=== PATIENT | male | born 1985 | race Caucasian/White ===

== ENCOUNTER 2024-08-24 16:48 | Inpatient (IN) | payer SELFPAY ==
[~2024-08-24] VITALS: Ht 165.1 cm; Wt 54.4 kg
[2024-08-24 18:16] LABS: BASOPHILS % 0.3 % (0.0-2.0); EOSINOPHILS % 0.1 % (0.0-5.0); HEMATOCRIT. 42.4 % (42.0-52.0); HEMOGLOBIN. 14.5 g/dL (14.0-18.0); LYMPHOCYTES % 7.5 % (20.0-50.0); MEAN CORPUSCULAR HEMOGLOBIN 28.4 pg (28.0-32.0); MEAN CORPUSCULAR HGB CONC 34.1 g/dL (31.0-37.0); MEAN CORPUSCULAR VOLUME 83.2 fL (80.0-94.0); MEAN PLATELET VOLUME 8.1 fl (7.4-10.4); MONOCYTES % 4.6 % (2.0-8.0); NEUTROPHILS % 87.5 % (40.0-76.0); PLATELET 226 x1000/uL (130-400); RED CELL DISTRIBUTION WIDTH 13.4 % (11.6-14.6); WHITE BLOOD COUNT 9.8 x1000/uL (4.5-11.0)
[2024-08-24 18:25] LABS: CHLORIDE 103 mEq/L (98-107); POTASSIUM 3.6 mEq/L (3.5-5.1); SODIUM 137 mEq/L (136-145)
[2024-08-24 18:26] LABS: CALCIUM 9.7 mg/dL (8.7-10.4); CARBON DIOXIDE 28 mEq/L (21-32)
[2024-08-24] MEDS: SODIUM CHLORIDE 0.9% 1,000 ML IV ONE (18:27)
[2024-08-24 18:31] LABS: CREATININE 0.9 mg/dL (0.6-1.3); ETHANOL BLOOD < 10 mg/dL (<10); GLUCOSE 146 mg/dL (70-105); UREA NITROGEN BLOOD 10 mg/dL (9-23)
[2024-08-24] MEDS: ONDANSETRON HCL 4MG/2ML INJ IV ONE (18:40)
[2024-08-24] MEDS: MECLIZINE 25MG TABLET PO ONE (18:40)
[2024-08-24 18:42] LABS: TROPONIN I HIGH SENSITIVITY 56 ng/L (3.0-53)
[2024-08-24 18:43] LABS: INR 1.1; PROTHROMBIN TIME 11.7 sec (9.6-11.0)
[2024-08-24 20:31] LABS: CLARITY URINE CLEAR (CLEAR); COLOR URINE YELLOW (YELLOW); GLUCOSE URINE NEGATIVE (NEGATIVE); KETONES URINE NEGATIVE (NEGATIVE); LEUKOCYTE ESTERASE URINE NEGATIVE (NEGATIVE); NITRITE URINE NEGATIVE (NEGATIVE); OCCULT BLOOD URINE NEGATIVE (NEGATIVE); PH URINE 6.5 (4.5-8.0); PROTEIN URINE NEGATIVE (NEGATIVE); SPECIFIC GRAVITY URINE 1.025 (1.005-1.030); UROBILINOGEN URINE 0.2 E.U./dL (0.2-1.0)
[2024-08-24 20:47] LABS: *AMPHETAMINES SCREEN URINE NEGATIVE (NEGATIVE); *BARBITURATES SCREEN URINE NEGATIVE (NEGATIVE); *BENZODIAZEPINES SCREEN URINE NEGATIVE (NEGATIVE); *COCAINE SCREEN URINE NEGATIVE (NEGATIVE); METHADONE URINE SCREEN NEGATIVE (NEGATIVE); OPIATES URINE SCREEN NEGATIVE (NEGATIVE)
[2024-08-24 20:48] LABS: CANNABINOID URINE SCREEN PRESUMPTIVE POSITIVE (NEGATIVE); ECSTASY MDMA SCREEN URINE NEGATIVE (NEGATIVE); PHENCYCLIDINE URINE SCREEN NEGATIVE (NEGATIVE)
[2024-08-24] MEDS ORDERED: ACETAMINOPHEN 325MG TABLET PO PRN ×2 (21:45)
[2024-08-24] MEDS ORDERED: DOCUSATE SODIUM 100MG CAPSULE PO PRN (21:45)
[2024-08-24] MEDS ORDERED: IPRATROPIUM/ALBUTEROL 0.5-3(2.5)MG/3ML NEB HHN PRN (21:45)
[2024-08-24] MEDS ORDERED: ONDANSETRON HCL 4MG/2ML INJ IV PRN (21:45)
[2024-08-24] MEDS ORDERED: CLONIDINE 0.1MG TABLET PO PRN (21:45)
[2024-08-24] MEDS ORDERED: MECLIZINE 12.5MG TABLET PO PRN (21:45)
[2024-08-24 21:51] LABS: TROPONIN I HIGH SENSITIVITY 86 ng/L (3.0-53)
[2024-08-24] MEDS: ASPIRIN 81MG TABLET PO SCH (23:01)
[2024-08-24 23:20] VITALS: BP 122/78; PULSE 62; RESP 18; TEMP 36.4
[2024-08-25] VITALS: BP 107/68; PULSE 52; RESP 18; TEMP 36.4; O2SAT 100
[2024-08-25] MEDS ORDERED: IOHEXOL-350 100 ML BOTTLE ONE (00:47)
[2024-08-25 04:00] VITALS: BP 98/64; PULSE 56; RESP 17; TEMP 36.3; O2SAT 100
[2024-08-25 07:33] LABS: THYROID STIMULATING HORMONE 0.68 uIU/mL (0.55-4.78)
[2024-08-25 08:00] VITALS: BP 114/68; PULSE 62; RESP 18; TEMP 37; O2SAT 99
[2024-08-25 08:06] LABS: ALANINE AMINOTRANSFERASE 12 IU/L (10-49)
[2024-08-25 08:07] LABS: ASPARTATE AMINOTRANSFERASE 23 IU/L (<34); BILIRUBIN DIRECT 0.1 mg/dL (<=3.0); BILIRUBIN TOTAL 0.5 mg/dL (0.1-1.0); PROTEIN TOTAL 6.6 g/dL (6.0-8.3)
[2024-08-25] MEDS: ENOXAPARIN 40MG/0.4ML SYR SUBCUT SCH (08:56)
[2024-08-25 12:00] VITALS: BP 110/71; PULSE 56; RESP 16; TEMP 37.1; O2SAT 97
[2024-08-25 13:11] LABS: TROPONIN I HIGH SENSITIVITY 16 ng/L (3.0-53)
[2024-08-25 16:00] VITALS: BP 108/70; PULSE 57; RESP 18; TEMP 37.3; O2SAT 99
[2024-08-25 20:20] VITALS: BP 101/66; PULSE 55; RESP 18; TEMP 37.5; O2SAT 98
[2024-08-26] VITALS: BP 106/67; PULSE 58; RESP 20; TEMP 37.1; O2SAT 99
[2024-08-26 04:00] VITALS: BP 102/72; PULSE 58; RESP 20; TEMP 36.8; O2SAT 99
[2024-08-26 08:30] VITALS: BP 109/65; PULSE 62; TEMP 98.1; O2SAT 95
== END 2024-08-26 09:45 | disposition home or self-care (01) | DRG 190 ==
LOC: ER 16:48 → EDBEDREQ 18:00 → 7WST 20:35 → EDBEDREQTM 20:46 → EDBEDREQ 20:46
PROVIDERS: ADMIT Internal Medicine; ATTEND Internal Medicine
DX: I21.4 Non-ST elevation (NSTEMI) myocardial infarction (principal)
CPT/HCPCS: 36415; 70496; 70498; 71045; 80048; 80061; 80076; 80305; 80320; 81003; 82962; 84425; 84443; 84484; 85025; 93005; 99291; A4606; J1650; J2405; J7030; J8597; Q9967; G0480